=== PATIENT | male | born 1945 | race Caucasian/White ===

== ENCOUNTER 2016-12-27 11:57 | Emergency (ER) | payer OTHER ==
[~2016-12-27] VITALS: Ht 180.3 cm; Wt 80.0 kg
[~2016-12-27 11:57] MED LIST: ALEN35TA24 PO; ASPI-110 PO; BUME1TAB26 PO; CALC648T PO; CARV12.5 PO; IPRAAER INH; LORA10TA PO; LOSA50TA PO; MULT-135 PO; OMEP20CA2 PO; SIMV80TA PO; SYMB160A INH; VENTAER INH; VITA100018 PO
[2016-12-27 11:59] VITALS: BP 108/63; PULSE 65; RESP 16; TEMP 98.2; O2SAT 95
[2016-12-27] MEDS ORDERED: CALC600T4 PO (14:22)
[2016-12-27] MEDS ORDERED: ALLE10TA PO (14:22)
[2016-12-27] MEDS ORDERED: BUME1TAB PO (14:22)
[2016-12-27] MEDS ORDERED: MULTTAB67 PO (14:22)
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
[2016-12-27] MEDS ORDERED: IBUP-232 PO (16:01)
== END 2016-12-27 16:13 | disposition home or self-care (01) ==
LOC: NEPD 11:57
DX: S13.4XXA Sprain of ligaments of cervical spine, initial encounter (principal); S43.409A Unspecified sprain of unspecified shoulder joint, initial encounter; M25.512 Pain in left shoulder; M25.511 Pain in right shoulder; I11.0 Hypertensive heart disease with heart failure; J44.9 Chronic obstructive pulmonary disease, unspecified; E11.9 Type 2 diabetes mellitus without complications; V49.49XA Driver injured in collision with other motor vehicles in traffic accident, initial encounter
CPT/HCPCS: 70450; 72125; 73030; 99284; L0150

== ENCOUNTER 2017-06-19 12:20 | Emergency (ER) | payer OTHER ==
[~2017-06-19] VITALS: Ht 180.3 cm; Wt 84.0 kg
[~2017-06-19 12:20] MED LIST changes: -ASPI-110 PO; +ASPI1TAB57 PO; +BUME1TAB PO; -BUME1TAB26 PO; +CALC600T4 PO; -CALC648T PO; +IBUP-232 PO; +LORA-650 PO; -LORA10TA PO; -MULT-135 PO; +MULTTAB67 PO
[2017-06-19 12:27] VITALS: PULSE 76; RESP 20; TEMP 97.5; O2SAT 98
[2017-06-19] MEDS ORDERED: PRED20 PO ×2 (13:25→14:30)
[2017-06-19] MEDS ORDERED: AZIT250T3 PO ×2 (13:25→14:30)
[2017-06-19 13:27] VITALS: BP 124/71
--- NOTE | 2017-06-19 13:27 | PD ---
HPI Chief Complaint: Cold / Flu Symptoms Time Seen by Provider: 13:20 Travel History International Travel<30 days: No Contact w/Intl Traveler<30days: No Traveled to known affect area: No History of Present Illness HPI 72-year-old male with history of COPD presents for evaluation of cough. Symptoms started 3 weeks ago. He reports cough with productive yellow sputum production. He reports congestion and sore throat as well. Denies shortness of breath, chest pain, fevers, chills, nausea, vomiting, abdominal pain. He reports that his has similar respiratory symptoms. He has no other complaints at this time. PFSH Past Medical History Arthritis: Yes Autoimmune Disease: No Heart Rhythm Problems: No Cancer: No Cardiac Catheterization: Yes Cardiovascular Problems: Yes (CHF / PACEMAKER) High Cholesterol: Yes Congestive Heart Failure: Yes COPD: Yes Diabetes: Yes Diminished Hearing: Yes Endocrine: Yes Gastrointestinal Disorders: Yes Hypertension: Yes Immune Disorder: No Implanted Vascular Access Dvce: Yes Neurologic: Yes Psychiatric: No Sleep Apnea: No Past Surgical History Abdominal Surgery: Yes (hernia repair 10/19) Body Medical Devices: Left knee replacement Coronary Artery Bypass Graft: No Pacemaker: Yes Thoracic Surgery: Yes (debrillator placed 02/18) Other Surgery: Yes Social History Alcohol Use: Yes (seldom) Tobacco Use: No Substance Use: No Allergies-Medications (Allergen,Severity, Reaction): Coded Allergies: No Known Allergies (Unverified , 12/27/16) Reported Meds & Prescriptions Reported Meds & Active Scripts Active Reported Multiple Vitamin 1 Tab 1 Tab PO DAILY Allergy Relief (Loratadine) 10 Mg Tab 10 Mg PO DAILY Calcium Carbonate 1,500 Mg Tab 1,500 Mg PO BID 1,500 mg calcium carbonate (600 mg elemental calcium) Bumetanide 1 Mg Tab 1 Mg PO DAILY Simvastatin 80 Mg Tab 40 Mg PO HS Aspirin 81 (Aspirin) 81 Mg Tabdr 81 Mg PO DAILY Omeprazole 20 Mg Cap 20 Mg PO DAILY Vitamin D3 (Cholecalciferol) 1,000 Unit Tab 1,000 Units PO DAILY Symbicort Inh (Budesonide/Formoterol Fumarate) 160-4.5 Mcg/Act Aero 2 Puff INH BID Alendronate (Alendronate Sodium) 35 Mg Tab 35 Mg PO WEEKLY Fridays Ventolin Hfa 18 GM Inh (Albuterol Sulfate) 90 Mcg/Act Aer 2 Puff INH Q6H Combivent Respimat Inh (Ipratropium-Albuterol Inh) 20-100 Halfway/Act Aero 1 Puff INH BID Losartan (Losartan Potassium) 50 Mg Tab 25 Mg PO DAILY Coreg (Carvedilol) 12.5 Mg Tab 12.5 Mg PO BID Review of Systems Except as stated in HPI: all other systems reviewed are Neg Physical Exam Narrative GENERAL: Well developed well-nourished male in no acute distress SKIN: Warm and dry. HEAD: Atraumatic. Normocephalic. EYES: Pupils equal and round. No scleral icterus. No injection or drainage. ENT: No nasal bleeding or discharge. Mucous membranes pink and moist. NECK: Trachea midline. No JVD. CARDIOVASCULAR: Regular rate and rhythm. No murmur appreciated. RESPIRATORY: No accessory muscle use. Mild inspiratory and expiratory wheezing bilaterally. No crackles. GASTROINTESTINAL: Abdomen soft, non-tender, nondistended. Hepatic and splenic margins not palpable. MUSCULOSKELETAL: No obvious deformities. No clubbing. No cyanosis. No edema. NEUROLOGICAL: Awake and alert. No obvious cranial nerve deficits. Motor grossly within normal limits. Normal speech. Data Data Last Documented VS Vital Signs Date Time Temp Pulse Resp B/P (MAP) Pulse Ox O2 Delivery O2 Flow Rate FiO2 06/19/17 13:58 98 21 06/19/17 13:30 16 06/19/17 13:27 124/71 (88) 06/19/17 12:27 97.5 76 Orders Orders Prednisone (Deltasone) (06/19/17 13:30) Albuterol-Ipratropium Neb (Duoneb Neb) (06/19/17 13:30) Ed Discharge Order (06/19/17 14:28) [facility] Medical Decision Making Medical Screen Exam Complete: Yes Emergency Medical Condition: Yes Medical Record Reviewed: Yes Differential Diagnosis COPD exacerbation, pneumonia, bronchitis, sinusitis Narrative Course 72-year-old male with history of COPD presents with productive cough for 3 weeks. He appears well. He is not hypoxic, tachypneic or tachycardic. He has mild wheezing bilaterally. Prednisone and DuoNeb treatment has been ordered. He will be discharged with prescriptions for prednisone and azithromycin. Diagnosis Primary Impression: COPD exacerbation Additional Instructions: Medication as prescribed. At home inhalers as needed for wheezing. Follow-up with primary care physician and return for any emergent medical conditions. Med/Other Pt SpecificInfo: Prescription(s) given Scripts Prednisone (Prednisone) 20 Mg Tab 20 MG PO BID for 5 Days, #10 TAB 0 Refills Prov: Jb Gomez MD 06/19/17 Azithromycin (Azithromycin) 250 Mg Tab 250 MG PO DIRECTED for Infection, #6 TAB 0 Refills Take 2 tabs (500 mg) on day 1 then 1 tab daily x 4 days. Prov: Jb Gomez MD 06/19/17 Disposition: 01 DISCHARGE HOME Condition: Stable Yo Elliott Jun 19, 2017 13:27
[2017-06-19] MEDS ORDERED: predniSONE 20 MG TAB PO ONE (13:30)
[2017-06-19] MEDS: RESP: ALBUTEROL 2.5 MG/IPRATROPIUM 0.5 MG NEB (SCH) INH ×2 (13:57→13:58)
[2017-06-19 13:58] VITALS: O2SAT 98
== END 2017-06-19 14:49 | disposition home or self-care (01) ==
LOC: NEPD 12:20
DX: J44.1 Chronic obstructive pulmonary disease with (acute) exacerbation (principal); I11.0 Hypertensive heart disease with heart failure; I50.9 Heart failure, unspecified; E78.00 Pure hypercholesterolemia, unspecified; E11.9 Type 2 diabetes mellitus without complications; Z95.0 Presence of cardiac pacemaker; Z79.899 Other long term (current) drug therapy
CPT/HCPCS: 94640; 94664; 99283; J7512